=== PATIENT | male | born 1980 | race African-American/Black ===

== ENCOUNTER 2019-07-21 06:59 | Emergency (ER) | payer MEDICAID ==
[~2019-07-21] VITALS: Ht 165.1 cm; Wt 72.6 kg
--- NOTE | 2019-07-21 07:00 | NUR ---
PT [id number] FROM HOME C/O SUICIDAL IDEATION WITH PLAN TO OVERDOSE, PT IS AAOX4, NOT IN RESPIRATORY DISTRESS, V/S STABLE, KEPT RESTED AND COMFORTABLE, WILL CONTINUE TO MONITOR.
--- NOTE | 2019-07-21 07:05 | NUR ---
URINE COLLECTED. CALLED LAB FOR MANAGER CORE
--- NOTE | 2019-07-21 07:12 | NUR ---
PATIENT IN BED AWAKE, HOOKED TO MONITOR, SITTER AT BEDSIDE. KEPT SAFE AND COMFORTABLE. WILL CONTINUE TO MONITOR ACCORDINGLY.
--- NOTE | 2019-07-21 07:30 | NUR ---
ER PHLEB AT BEDSIDE FOR BLOOD DRAW.
[2019-07-21 07:35] LABS: APPEARANCE,URINE SL CLOUDY (CLEAR); BILIRUBIN,URINE SMALL (NEGATIVE); BLOOD, URINE NEGATIVE Ery/uL (NEGATIVE); COLOR,URINE YELLOW (YELLOW); KETONES,URINE 15 (NEGATIVE); LEUKOCYTE ESTERASE ,URINE NEGATIVE (NEGATIVE); NITRITE, URINE NEGATIVE (NEGATIVE); PH,URINE 6.5 (5.0-8.0); PROTEIN,URINE TRACE mg/dl (NEGATIVE); UGLUCOSE NEGATIVE (NEGATIVE)
[2019-07-21 07:38] LABS: BASOPHILS # (AUTO) 0.1 /CMM (0.0-0.2); BASOPHILS % (AUTO) 0.6 % (0.0-2.0); EOSINOPHILS % (AUTO) 0.3 % (0.0-6.0); HEMATOCRIT 44 % (39-51); HEMOGLOBIN 14.9 g/dL (13.5-17.5); LYMPHOCYTES # (AUTO) 1.3 /CMM (0.8-4.8); LYMPHOCYTES % (AUTO) 11.9 % (20.0-44.0); MEAN CORPUSCULAR HGB CONC 34 g/dl (31.0-36.0); MEAN CORPUSCULAR VOLUME 88 fL (80-96); MONOCYTES # (AUTO) 1.2 /CMM (0.1-1.30); MONOCYTES % (AUTO) 11.2 % (2.0-12.0); NEUTROPHILS # (AUTO) 8.2 /CMM (1.8-8.9); PLATELET COUNT (AUTO) 272 /CMM (150-450); RED BLOOD CELL COUNT(AUTO) 5.02 MIL/uL (4.5-6.0); WHITE BLOOD COUNT (AUTO) 10.7 K/uL (4.3-11.0)
[2019-07-21 07:45] LABS: CALCIUM, SERUM 8.8 mg/dL (8.5-10.1); CARBON DIOXIDE 27 mmol/L (21-32); CHLORIDE 101 mmol/L (98-107); CREATININE 1.4 mg/dL (0.6-1.3); GLUCOSE 101 mg/dL (74-106); POTASSIUM 3.5 mmol/L (3.5-5.1); SODIUM SERUM 139 mmol/L (136-145); UREA NITROGEN, BLOOD 17 mg/dL (7-18)
[2019-07-21 07:51] LABS: ACETAMINOPHEN 0 ug/ml (10-30); ALANINE AMINOTRANSFERASE 25 U/L (12-78); ALBUMIN 3.9 g/dL (3.4-5.0); ALCOHOL, BLOOD < 3 mg/dL (0-0); ALKALINE PHOSPHATASE 52 U/L (46-116); ASPARTATE AMINOTRANSFERASE 20 U/L (15-37); BILIRUBIN,DIRECT 0.1 mg/dL (0.0-0.2); BILIRUBIN,TOTAL 0.8 mg/dL (0.2-1.0); SALICYLATE 1.2 mg/dL (2.8-20.0); TOTAL PROTEIN, SERUM 6.7 g/dL (6.4-8.2)
[2019-07-21 08:16] LABS: BACTERIA,URINE None seen /HPF (None Seen); RBC,URINE 0-2 /HPF (0-2); SQUAMOUS EPITHELIAL CELL,UR Rare /HPF (None Seen); WBC,URINE 0-2 /HPF (0-3)
--- NOTE | 2019-07-21 09:06 | NUR ---
PATIENT IN BED ASLEEP, EASILY AROUSABLE BY VOICE. HOOKED TO MONITOR, SITTER AT BEDSIDE. KEPT SAFE AND COMFORTABLE. WILL CONTINUE TO MONITOR ACCORDINGLY.
--- NOTE | 2019-07-21 10:10 | NUR ---
Social service consult requested by MD for voluntary psychiatric hospitalization. Per MD notes, pt is a 38-year-old male with history of psychiatric disease who was just released from [facility] however states he was not ready to leave. However between [facility] and coming here he did some amphetamines. He feels very suicidal. DRIVING SCHOOL INSTRUCTOR conducted chart review and met with the pt bedside. DRIVING SCHOOL INSTRUCTOR introduced self and explained the purpose of the visit. Pt is alert and oriented x 4. Pt is cooperative and pleasant with SW. Pt reports he resides with is [id number] at [address] [place] [address], in [facility]. Pt stated, he was recently discharged from [facility] psychiatric unit and was there for seven days. Pt reports, he continues to feeling suicidal and is hearing voices telling him to "jump in front of the train." Pt also reports, voices telling him to " push someone in front of the train." Pt reports to have a psychiatric diagnosis of Paranoid Schizophrenia. Pt's current psychotropic medications include Latuda 40mg, Remeron 30mg and Trileptal 2x daily. Pt is requesting voluntary psychiatric admission. DRIVING SCHOOL INSTRUCTOR informed pt she has referred him to [facility]. Pt is accepting of going to [facility]. DRIVING SCHOOL INSTRUCTOR provided pt with active listening, positive coping skills, validation of feelings and supportive counseling. Clinicals faxed to [facility] intake dept. ARUN Richmond has been updated with aforementioned information. Medical Child Care Lead Teacher is available as needed.
--- NOTE | 2019-07-21 10:23 | NUR ---
CONFIRMED BY SETTLEMENT PROCESSOR AND THE PATIENT, PATIENT IS NOT HOMELESS, HIS CURRENT ADDRESS IS [facility] [address] [place] [address].
--- NOTE | 2019-07-21 12:20 | NUR ---
Note jeannine in EDM - 07/21/19 at 1224 by VIVEK PT ACCEPTED AT [facility] UNDER THE CARE OF DR. UMANA. [phone]. UNIT B4. RN SUP WILL GIVE ROOM NUMBER UPON REPORT.
--- NOTE | 2019-07-21 12:20 | NUR ---
PT ACCEPTED AT [facility] UNDER THE CARE OF DR. UMANA. [phone] [phone]. UNIT B4. RN SUP WILL GIVE ROOM NUMBER UPON REPORT.
--- NOTE | 2019-07-21 12:33 | NUR ---
REPORT GIVEN TO ARUN LEE FOR [facility] AT THE [facility]. PT IS TO [facility] AT THE ER FOR COVID SWAB ONLY.
--- NOTE | 2019-07-21 13:55 | NUR ---
[facility] ETA 1600H TRIP #[id number]
--- NOTE | 2019-07-21 16:03 | NUR ---
[facility] 226 AT BEDSIDE FOR PT TRANSPORT TO [facility]. PT IS IN STABLE CONDITION. PREPORT GIVEN.
[2019-07-21 16:08] VITALS: BP 128/77
== END 2019-07-21 16:08 ==
LOC: ER 07:02
DX: R45.851 Suicidal ideations (principal); F15.10 Other stimulant abuse, uncomplicated
CPT/HCPCS: 36415; 80048; 80076; 80305; 80307; 80329; 81001; 85025; 99285; G0480; 81000-TC